=== PATIENT | female | born 1940 | race African-American/Black ===

== ENCOUNTER 2017-01-14 17:18 | Emergency (ER) | payer MEDICARE, BC | END 2017-01-14 19:33 | disposition home or self-care (01) | LOC: D.ER 17:18 | DX: M62.838 Other muscle spasm (principal); S16.1XXA Strain of muscle, fascia and tendon at neck level, initial encounter; X58.XXXA Exposure to other specified factors, initial encounter; Y93.89 Activity, other specified; Y92.89 Other specified places as the place of occurrence of the external cause; Z85.07 Personal history of malignant neoplasm of pancreas ==

== ENCOUNTER 2017-01-16 11:43 | Emergency (ER) | payer MEDICARE, BC | END 2017-01-16 16:56 | disposition home or self-care (01) | LOC: D.ER 11:43 | DX: M43.6 Torticollis (principal); Z86.718 Personal history of other venous thrombosis and embolism; C25.9 Malignant neoplasm of pancreas, unspecified; I10 Essential (primary) hypertension ==